=== PATIENT | female | born 1975 | race Caucasian/White ===

== ENCOUNTER → 2016-05-31 | Outpatient (CLI) | payer BC ==
--- NOTE | 2016-06-01 15:55 | EKG ---
[address] [place] [address] Measurements Intervals [place] Rate: 51 P: 270 [place]: 146 QRS: -81 QRSD: 79 T: 256 QT: 454 QTc: 431 Interpretive Statements ECTOPIC ATRIAL BRADYCARDIA QUESTION LEAD PLACEMENTS POSSIBLE RIGHT VENTRICULAR CONDUCTION DELAY LEFT ANTERIOR FASCICULAR BLOCK MODERATE T-WAVE ABNORMALITY, CONSIDER INFERIOR ISCHEMIA [ No previous ECG available for comparison Electronically Signed On 06-02-16 11:57:35 MST by Earle Pennington [email or web address]
== END ==
LOC: MOB EKG 12:10
PROVIDERS: ATTEND Physician Assistant
DX: R06.02 Shortness of breath (principal); R00.1 Bradycardia, unspecified; I44.4 Left anterior fascicular block
CPT/HCPCS: 93005; 93010

== ENCOUNTER → 2016-05-31 | Outpatient (CLI) | payer BC ==
[2016-05-31 09:43] LABS: BASOPHILS # (AUTO) 0.04 10*3/UL; BASOPHILS % (AUTO) 0.5 % (0-1); EOSINOPHILS % (AUTO) 1.6 % (0-8); HEMATOCRIT 39.7 % (37.0-47.0); HEMOGLOBIN 13.7 g/dL (12.0-16.0); IMM GRAN % (AUTO) 0.1 % (0-5); IMM GRAN# (AUTO) 0.01 10*3/UL; LYMPHOCYTES # (AUTO) 2.51 10*3/uL; LYMPHOCYTES % (AUTO) 33.2 % (10-50); MEAN CORPUSCULAR HEMOGLOBIN 32.6 PG (27-31); MEAN CORPUSCULAR HGB CONC 34.5 g/dL (33-37); MEAN PLATELET VOLUME 9.2 FL (7.4-12.2); MONOCYTES # (AUTO) 0.66 10*3/UL (0.3-0.8); MONOCYTES % (AUTO) 8.7 % (5-15); NEUTROPHILS # (AUTO) 4.22 10*3/UL; NEUTROPHILS % (AUTO) 55.9 % (50-80); RDW COEFFICIENT OF VARIATION 12.7 % (11.5-14.5); WHITE BLOOD COUNT 7.56 10^3/uL (4.8-10.8)
[2016-05-31 09:48] LABS: PLATELET MORPHOLOGY COMMENT NORMAL MORPHOLOGY (NORM)
[2016-05-31 09:51] LABS: ASPARTATE AMINO TRANSFERASE 24 IU/L (8-39); BILIRUBIN,TOTAL 0.6 mg/dL (0.3-1.2); BLOOD UREA NITROGEN 14 mg/dL (7-22); CALCIUM 9.4 mg/dL (8.7-10.7); CHLORIDE 105 meq/L (98-112); EST GLOMERULAR FILTRATION > 60 (>60 ml/min/1.73m(2)); GLUCOSE 94 mg/dL (78-110); POTASSIUM 3.6 meq/L (3.8-5.2); SODIUM 139 meq/L (135-145); TOTAL PROTEIN 6.9 g/dL (6.1-8.0)
--- NOTE | 2016-05-31 12:02 | DI ---
XR CXR 2VW PA/LAT,05/31/2016 8:52 AM: Clinical History: Shortness of breath. Previous Exam: Sep 06 2011 Findings: PA and lateral views of the chest are obtained, and demonstrate clear lungs. The cardiomediastinum an d bony thorax are unremarkable. Impression: Normal chest.
== END ==
LOC: MOB LAB 08:54
PROVIDERS: ATTEND Physician Assistant
DX: R06.02 Shortness of breath (principal); R07.9 Chest pain, unspecified; R05 Cough; R10.84 Generalized abdominal pain; J39.9 Disease of upper respiratory tract, unspecified; Z82.49 Family history of ischemic heart disease and other diseases of the circulatory system
CPT/HCPCS: 36415; 71020; 80053; 82553; 83690; 84443; 84484; 85025; 85379

== ENCOUNTER 2016-07-04 19:06 | Emergency (ER) | payer BC ==
[2016-07-04] MEDS ORDERED: KETOROLAC 60 MG/2 ML VIAL IM ONE (19:16)
[2016-07-04 19:17] VITALS: RESP 18; TEMP 98.1
[2016-07-04] MEDS ORDERED: KETOROLAC 10 MG TABLET PO SCH (19:30)
--- NOTE | 2016-07-04 21:50 | PDOC ---
General Adult HPI - General Chief Complaint: General Medical Stated Complaint: Intermittent left occipital head pain Date Seen by Provider: 07/04/16 Time Seen by Provider: 19:20 Source: POSITIVE: Patient Exam Limitations: POSITIVE: No limitations Nurse's Notes Reviewed & Considered: Yes - History of Present Illness Initial Comment: The patient is a 41-year-old female. She states that for the past one to 2 days she has been having intermittent episodes of pain to the left occipital area. Her scalp is quite tender over this area. No history of head trauma. She states she does have a history of migraine headaches for which she takes Topamax. She was seen in the clinic yesterday for this problem and was started on Flexeril. No history of head trauma. No fevers or chills. No sensory or motor symptoms. No ENT symptoms. Have you received a tetanus shot in the past 10 years?: Yes Body Location Affected: REPORTS: Head Timing: REPORTS: Abrupt, Intermittent Duration: >24 hours (2 days, approximately) Severity: Moderate Quality: REPORTS: "Pain", Sharpness Context: REPORTS: Other (Pain with direct palpation). DENIES: None, Sitting, Standing, Activity, Emotional stress, Coughing, Recent Trauma, Recent Surgery, Sleep, Rest, Lifting, Turning, Bending, Fall, Near Fall Modifying Factors: improves with: Palpation. worse with: Nothing, Analgesics, Antacids, Breathing, Coughing, Defecating, Vomiting, Eating, Exercise, Lying down, Urinating, Movement, Rest, Upright Position, Walking, Remaining Still, Other Similar Symptoms Previously: Yes Recent Care Received: REPORTS: Recently Seen, Treated by MD (As above) Any Prior Injuries Related to Current Complaint?: No - Patient Home Medications Home Medications: Home Medications Topiramate [Topamax] 50 mg PO QD #180 tab 08/01/15 Baclofen 2 tab PO TID #270 tab 09/24/15 Cyclobenzaprine HCl [Flexeril] 5 mg PO PRN 07/04/16 Ibuprofen 200 mg PO Q4H PRN 07/04/16 Ketorolac Tromethamine [Toradol] 10 mg PO Q6H PRN #25 tablet 07/04/16 - Patient Allergies Allergies/Adverse Reactions: Allergies Allergy/AdvReac Type Severity Reaction Status Date / Time Penicillins Allergy DIFFICULTY Verified 07/04/16 19:10 SWALLOWING Past Medical History - heen HEENT History: Denies History Cardiovascular History: Denies History Respiratory History: Denies History Gastrointestinal History: Denies History Additional Gastrointestinal History: Hx of a cholecystectomy Genitourinary History: Denies History Endocrine History: Denies History Musculoskeletal History: Denies History Neurological History: Other (please comment) Additional Neurological History: Trigeminal Neuralgia Blood Disorders: Denies History Psychiatric History: Denies History History of Sexually Transmitted Diseases: No Female Reproductive History: Denies History Obstetrical History: Denies History Cancer History: Denies History In Past Year Been Physically Harmed or Verbally Threatened: No History of MDRO: No History of Other Communicable Diseases: No Tobacco Use: Never Smoker Alcohol Use: Rarely Substance Use Type: None Previous Surgical History: No Type / Date of Surgery: Cholecystectomy Anesthesia Reactions: No Malignant Hyperthermia: No Significant Family History: No pertinent family hx Past Medical History Reviewed: Reviewed - No Changes ROS - Limitations ROS Limitations: No Limitations Constitution: REPORTS: Denies Symptoms Cardiovascular: REPORTS: Denies Cardiac Symptoms Respiratory: REPORTS: Denies Resp Symptoms Neurological: REPORTS: Headache (As above) Gastrointestinal: REPORTS: Denies GI Symptoms Endocrine: REPORTS: Denies Symptoms Musculoskeletal: REPORTS: Other (Scalp tenderness left occipital area). DENIES : Denies MS Symptoms, Back Pain, Calf Pain, Joint Pain, Lower Extremity Swelling , Muscle Aches, Neck Pain, Pedal Edema, Recent Injury Genitourinary: REPORTS: Denies Symptoms Eyes: REPORTS: Denies Symptoms ENT: REPORTS: Denies Symptoms Skin: REPORTS: Denies Skin Symptoms Lympathic: REPORTS: Denies Lympathic Symptoms Immunologic: POSITIVE: Denies Symptoms Psychiatric: POSITIVE: Denies Psych Symptoms General Adult Exam - General Appearance General Appearance: POSITIVE: Alert, Cooperative, No Acute Distress, No Evidence of Trauma - HEENT HEENT: POSITIVE: Head Inspection Nml, Eyes Inspection Nml, Ears Inspection Nml, Nose Inspection Nml, Oral/Dental Inspect. Nml, Pharynx Inspect. Nml, PERRL, EOMI - Pupils Pupil Size: 4 mm: Bilateral (PERRLA) - Neck Neck: POSITIVE: Normal Inspection, Thyroid Normal - Respiratory Respiratory: POSITIVE: No Respiratory Distress, Breath Sounds Normal, Chest Non- Tender - Cardiovascular Cardiovascular: POSITIVE: Regular Rate & Rhythm, No Murmur, No Gallop, PMI Normal Peripheral Pulses: Radial (R): 2+, Radial (L): 2+ - Abdomen Abdomen: Soft: (All Quadrants), Normal Bowel Sounds: (All Quadrants), Denies Tenderness: (All Quadrants), No Splenomegaly: (All Quadrants), No Hepatomegaly: (All Quadrants), No Guarding: (All Quadrants), No Rebound: (All Quadrants), No Palpable Pulse: (All Quadrants), No Palpabale Mass: (All Quadrants), No Distention: (All Quadrants), No Rigidity: (All Quadrants) - Back Back: POSITIVE: Normal Inspection - Skin Skin: POSITIVE: Normal Color, Warm, Dry, No Rash - Extremities Extremity: Non-Tender: (All Extremities), Normal ROM: (All Extremities), Normal Inspection: (All Extremities) - Neurological / Psychological Neurological: POSITIVE: Affect Apporpriate, Oriented X3, lead injection mold technician Normal As Tested, Motor Normal, Sensation Normal Images - Head Head: 1 - Tenderness on palpation General Adult Progress - Patient's Progress Pain Medication Addressed: POSITIVE: Yes (Toradol) School/Work Release Addressed: POSITIVE: Not Applicable Re-Examine Time: 19:45 Status: POSITIVE: Unchanged - Consult Counseled: POSITIVE: Patient, RE: DX, RE: Need for F/U Patient Care Time - Estimated PCT Patient Care Time (In Minutes): 20 Vital Signs - Recent Vital Signs Vital Signs: Vital Signs (Last 8 hours) Temp Pulse Resp BP Pulse Ox 07/04/16 19:09 98.1 F 102 H 18 159/111 93 - VS Reviewed Vital Signs Reviewed: Yes Discharge Clinical Impression: Headache Discharge Disposition: Discharged to Home Condition: Stable Prescriptions / Orders: Ketorolac Tromethamine [Toradol] 10 mg PO Q6H PRN #25 tablet PRN Reason: Pain Patient Instructions Given at Discharge: Muscle Strain (ED) Additional Instructions: I believe you're scalp discomfort is due to muscular inflammation. Please continue your muscle relaxant. Add Toradol. Take 2 Toradol tablets in 4 hours and then one every 6 hours as necessary for discomfort up to maximum of 4 in 24 hours. Follow-up with your primary care provider. Return here anytime as necessary. Follow Up With: LUCA [email or web address] [Primary Care Provider] - (Instructions as above. Follow-up with your primary care provider.)
== END 2016-07-04 19:57 | disposition home or self-care (01) ==
LOC: ER 19:06
DX: R51 Headache (principal)
CPT/HCPCS: 96372; 99282 ×2; J1885